=== PATIENT | male | born 1995 | race Caucasian/White ===

== ENCOUNTER 2023-11-19 14:39 | Emergency (ER) | payer SELFPAY ==
[2023-11-19 14:51] VITALS: BP 124/70; PULSE 127; RESP 16; TEMP 36.7; O2SAT 95; BMI 22.9
--- NOTE | 2023-11-19 14:54 | ECG_ITS ---
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 Measurements Intervals [place] Rate: 130 P: 77 CO: 162 QRS: 72 QRSD: 82 T: 91 QT: 333 QTc: 490 Interpretive Statements SINUS TACHYCARDIA NONSPECIFIC T-WAVE ABNORMALITY No previous ECG available for comparison Electronically Signed On 11-20-2023 16:25:55 DRAW MACHINE OPERATOR by Christopher Wright M.D. [id number]
[2023-11-19 15:19] VITALS: O2SAT 95
--- NOTE | 2023-11-19 15:19 | XRR_ITS ---
PROCEDURE INFORMATION: Exam: XR Chest Exam date and time: 11/19/2023 3:27 PM Age: 27 years old Clinical indication: Patient HX: Cough; Fever; Body aches TECHNIQUE: Imaging protocol: Radiologic exam of the chest. Views: 1 view. COMPARISON: No relevant prior studies available. FINDINGS: Lungs: Unremarkable. No consolidation. Pleural spaces: Unremarkable. No pleural effusion. No pneumothorax. Heart/Mediastinum: Unremarkable. No cardiomegaly. Bones/joints: Unremarkable. XR/XR chest 1V portable [id number] IMPRESSION: No acute findings.
--- NOTE | 2023-11-19 15:32 | W.ED.URI ---
HPI - URI/Sore Throat General: Chief Complaint: COVID symptoms Stated Complaint: Chest pain , Fever Time Seen by Provider: 11/19/23 15:05 Source: patient Mode of arrival: ambulatory Limitations: no limitations History of Present Illness: Patient is a 27-year-old male who presents to ED today with a complaint of cough and congestion. He was reportedly coughing up yellow phlegm and feels like he cannot take a deep breath. He reports being around another individual with influenza. He does state he has been running fevers. No vomiting or diarrhea. Denies chest pain. MD elicited complaint: cough and nasal congestion Onset (ago): day(s) Consistency: constant Severity: moderate Description of mucous: clear Able to tolerate fluids by mouth: Yes Exacerbating factors: nothing Relieving factors: nothing Context: sick contacts (exposed to individual with influenza) Associated symptoms: Reports nasal congestion; Deny abdominal pain, chills, chest pain, diarrhea, fever(s), headache(s), nausea, sinus pain or vomiting Treatments prior to arrival: none Review of Systems Const: Reports: body aches; Denies: fever(s), chills, fatigue or malaise Eyes: Denies: change in vision, blurry vision, eye discomfort or eye discharge ENMT: Reports: nasal congestion; Denies: throat pain, odynophagia, nasal discharge or sinus pain Card: Denies: chest pain, palpitations, irregular heart rhythm, edema, swelling of feet/ankles, lightheadedness, syncope or pre-syncope Resp: Reports: dyspnea, productive cough and chest congestion; Denies: wheezing, stridor, pain on inspiration or hemoptysis GI: Denies: abdominal pain, nausea, vomiting or diarrhea : Denies: flank pain, difficulty urinating, dysuria, urinary frequency, urinary urgency or urinary hesitancy Musc: Denies: neck pain, back pain, extremity pain or joint pain Skin/Breast: Denies: rash Neuro: Denies: headache(s), numbness in extremities, weakness in extremities, sensory changes or dizziness PFS ED PFSH: Medical History Anxiety ADHD (attention deficit hyperactivity disorder), combined type Insomnia Psychiatric care OCD (obsessive compulsive disorder) Physical Exam Const: COMMON NORMALS: no acute distress, average body habitus, patient oriented x3, no limitations, healthy appearing, alert and well nourished GENERAL APPEARANCE: cooperative HENMT: COMMON NORMALS: Normal external nose present FACE & SINUS: normal facial exam and sinuses nontender NOSE: Normal external nose present THROAT: posterior oropharynx normal Eye: GENERAL EYE: appearance normal, both eyes and all related structures Neck/C-Spine: COMMON NORMALS: no lymphadenopathy Resp: COMMON NORMALS: normal respiratory effort and clear to auscultation bilaterally AUSCULTATION: clear to auscultation bilaterally Cardio: COMMON NORMALS: regular rhythm RATE: tachycardic RHYTHM: regular rhythm GI: COMMON NORMALS: Normal to inspection, nondistended, normoactive bowel sounds present, Soft to palpation and non-tender PALPATION: Yes Soft to palpation Neuro: COMMON NORMALS: patient oriented x3 SENSORIUM/ORIENTATION: Yes alert Course Vital Signs: Vital signs: Vital Signs Temperature 98.1 F 11/19/23 14:51 Pulse Rate 101 H 11/19/23 16:16 Respiratory Rate 16 11/19/23 14:51 Blood Pressure 142/87 11/19/23 16:16 Pulse Oximetry 95 11/19/23 16:16 Oxygen Delivery Me thod Room Air 11/19/23 15:19 MDM - URI/Sore Throat Medical Decision Making Patient appears in no acute distress. CXR is normal. Respiratory panel collected and pending. He will be called later today with any positive results. Medical Records I reviewed the patient's medical records. Lab Data Radiology Impressions Chest X-Ray 11/19/23 15:19 IMPRESSION: No acute findings. All radiology interpretation(s) finalized by discharge Discharge Plan Discharge Patient Disposition: Home Clinical Impression: Viral upper respiratory tract infection with cough Condition: Stable Prescriptions: No Action clomipramine 25 mg capsule 25 mg PO DAILY Qty: 30 0RF dextroamphetamine-amphetamine [Adderall] 20 mg tablet 10 mg PO BID 30 Days Qty: 30 0RF Discharge Orders: Discharge ED (Routine); Ordered 11/19/23 Ordered By: Cristina Valadez Referrals: Mary Bishop [Primary Care Provider] - Patient Instructions: Upper Respiratory Infection (DC) Activity Restrictions/Additional Instructions: Your chest x-ray here was negative for pneumonia. As we discussed we will collect a respiratory panel on you. You will be contacted later today for any positive results. Coding Level of Care Code ED Exhibit Display Representative for Keyla Mensah
[2023-11-19 16:16] VITALS: BP 142/87; PULSE 101; O2SAT 95
[2023-11-19 17:46] LABS: Adenovirus Not Detected (NOT DETECT); Chlamydia Pneumoniae Not Detected (NOT DETECT); Coronavirus 229E,HKU1,NL63,OC4 Not Detected (NOT DETECT); Human Metapneumovirus Not Detected (NOT DETECT); Human Rhinovirus/Enterovirus Not Detected (NOT DETECT); Influenza A Detected (NOT DETECT); Influenza A H1 Not Detected (NOT DETECT); Influenza A H1-2009 Detected (NOT DETECT); Influenza A H3 Not Detected (NOT DETECT); Influenza B Not Detected (NOT DETECT); Mycoplasma Pneumoniae Not Detected (NOT DETECT); Parainfluenza Virus Type 1 Not Detected (NOT DETECT); Parainfluenza Virus Type 2 Not Detected (NOT DETECT); Parainfluenza Virus Type 3 Not Detected (NOT DETECT); Parainfluenza Virus Type 4 Not Detected (NOT DETECT); Respiratory Syncytial Virus A Not Detected (NOT DETECT); Respiratory Syncytial Virus B Not Detected (NOT DETECT); SARS-COV-2 Not Detected (NOT DETECT)
== END 2023-11-19 16:10 | disposition home or self-care (01) ==
PROVIDERS: Emergency Provider Physician Assistant; PCP Nurse Practitioner Family
DX: J06.9 Acute upper respiratory infection, unspecified (principal); R05.9 Cough, unspecified
CPT/HCPCS: 71045; 87486; 87581; 87633; 93005; 99284

== ENCOUNTER 2024-04-18 20:04 | Emergency (ER) | payer SELFPAY ==
[2024-04-18 20:15] VITALS: BP 123/77; PULSE 79; RESP 14; TEMP 36.5; O2SAT 97; BMI 23.6
[2024-04-18 20:47] LABS: Basophils % 0.4 %; Eosinophils # 0.2 10^3/uL (0.0-0.8); Eosinophils % 4.2 %; Hematocrit 43.1 % (37-53); Lymphocytes # 1.6 10^3/uL (0.8-4.8); Lymphocytes % 32.7 %; Mean Corpuscular HGB Conc 32.3 g/dL (30-55); Mean Corpuscular Hemoglobin 26.7 pg (27-33); Mean Corpuscular Volume 82.9 fl (82-101); Monocytes # 0.3 10^3/uL (0.2-0.9); Neutrophils # 2.89 10^3/uL (1.8-7.7); Neutrophils % 57.7 %; Nucleated Red Blood Cells % 0 %; Platelet Count 246 10^3/cmm (157-399); Red Cell Distribution Width 12.4 % (12.1-15.1); White Blood Count 5.01 10^3/uL (3.29-11.43)
--- NOTE | 2024-04-18 20:47 | XRR_ITS ---
PROCEDURE INFORMATION: Exam: XR Abdomen Exam date and time: 04/18/2024 8:52 PM Age: 28 years old Clinical indication: Abdominal pain; Flank; Right; Additional info: Abdominal pain x 2mo, increasingly worse when bent over and gets relief lying down TECHNIQUE: Imaging protocol: Radiologic exam of the abdomen. Views: 2 Views. Upright and supine views. COMPARISON: No relevant prior studies available. FINDINGS: Lungs: No consolidation. Pleural spaces: There is no pleural effusion or pneumothorax. Heart/Mediastinum: The included chest shows a normal heart size. Gastrointestinal tract: There are no abnormally dilated loops of small bowel. There is moderate fecal burden throughout the colon suggestive of constipation. Intraperitoneal space: No free air. Organs: The right kidney shadow is obscured by the overlying hepatic flexure. Bones/joints: Unremarkable for age. XR/XR acute abdomen series 20507 IMPRESSION: 1. Moderate fecal burden throughout the colon suggestive of constipation. 2. The right kidney shadow is obscured by the overlying hepatic flexure.
--- NOTE | 2024-04-18 20:48 | ED_ITS ---
HPI - Abdominal Pain 2 General: Chief Complaint: Abdominal Pain Stated Complaint: Abd Pain Time Seen by Provider: 04/18/24 20:23 History of Present Illness: 28-year-old man who presents emergency r oom with abdominal pain. This been going on for some time now. Has been seen in the emergency room at 6 weeks ago and was told that he was constipated. He stated, gotten better but then has gotten worse again. He feels like his abdomen is bloated. No nausea or vomiting. No diarrhea. No fevers. No dysuria. Review of Systems 2 Narrative: Constitutional symptoms: Negative except as documented in HPI. Skin symptoms: Negative except as documented in HPI. Eye symptoms: Negative except as documented in HPI. ENMT symptoms: Negative except as documented in HPI. Respiratory symptoms: Negative except as documented in HPI. Cardiovascular symptoms: Negative except as documented in HPI. Gastrointestinal symptoms: Negative except as documented in HPI. Genitourinary symptoms: Negative except as documented in HPI. Musculoskeletal symptoms: Negative except as documented in HPI. Neurologic symptoms: Negative except as documented in HPI. Psychiatric symptoms: Negative except as documented in HPI. Endocrine symptoms: Negative except as documented in HPI. Physical Exam 2 Narrative: EXAM NARRATIVE: General: Alert, no acute distress. Skin: Warm, dry. Head: Normocephalic, atraumatic. Neck: Supple, trachea midline. Eye: Extraocular movements are intact. Ears, nose, mouth and throat: mucosa moist. Cardiovascular: Regular, Normal peripheral perfusion. Respiratory: Lungs are clear to auscultation, respirations are non-labored, breath sounds are equal, Symmetrical chest wall expansion. Gastrointestinal: Soft, mild diffuse abdominal pain, no obvious distention., Normal bowel sounds. Musculoskeletal: Normal ROM, no deformity. Neurological: Alert and oriented, No focal neurological deficit observed. Psychiatric: Cooperative, appropriate mood & affect. Course 2 Vital Signs: Vital signs: Vital Signs Temperature 97.7 F 04/18/24 20:15 Pulse Rate 70 04/18/24 21:04 Respiratory Rate 14 04/18/24 20:15 Blood Pressure 130/73 04/18/24 21:04 Pulse Oximetry 96 04/18/24 21:04 Oxygen Delivery Me thod Room Air 04/18/24 21:04 MDM - Abdominal Pain Medical Decision Making Medical decision making: Differential diagnosis including but not limited to and based on the above HPI, review of systems and physical exam: In this patient with chronic abdominal pain seems most likely he still is having some constipation. Basic lab work is ordered and an x-ray to start. Orders placed to evaluate differential diagnosis based on the above differential, HPI and physical exam Acute abdominal series: chest x-ray: No acute process. No obvious infiltrates. No pneumothorax. No cardiomegaly. This was reviewed and interpreted by myself the emergency room physician Abdomen x-ray: Nonspecific bowel gas pattern. No evidence of free air or obstruction. This was reviewed and interpreted by myself the emergency room physician. Large amount of stool throughout the colon indicative of constipation. Lab Review: Laboratory results were reviewed and interpreted by myself the emergency room physician. Lab work is unremarkable. No leukocytosis. No renal failure. Electrolytes are normal. I reviewed the patient's medical record. Reexamination: Patient remained stable. No altered mental status. He had no vomiting. No focal abdominal pain. Assessment and plan: Constipation. ?Mag citrate to start in the emergency room. Will put him on a plan of MiraLAX daily to twice daily for the next few months - Discharged home - Discussed plan with patient. Answered any questions. - Evaluation and treatment of this problem were appropriate in the emergency setting. Lab Data 04/18/24 20:31 04/18/24 20:31 Labs/Radiology: Laboratory Results WBC 5.01 10^3/uL (3.29-11.43) 04/18/24 20: RBC 5.20 10^6/uL (3.85-5.65) 04/18/24 20:31 Hgb 13.90 g/dL (11.27-16.99) 04/18/24 20: Hct 43.1 % (37-53) 04/18/24 20:31 MCV 82.9 fl (82-101) 04/18/24 20: MCH 26.7 pg (27-33) L 04/18/24 20: MCHC 32.3 g/dL (30-55) 04/18/24 20: RDW 12.4 % (12.1-15.1) 04/18/24 20: Plt Count 246 10^3/cmm (157-399) 04/18/24 20: MPV 10.0 fL (7.4-10.4) 04/18/24 20:31 Neut % (Auto) 57.7 % 04/18/24 20:31 Lymph % (Auto) 32.7 % 04/18/24 20:31 Wilkinson % (Auto) 5.0 % 04/18/24 20:31 Eos % (Auto) 4.2 % 04/18/24 20:31 Baso % (Auto) 0.4 % 04/18/24 20:31 Neut # (Auto) 2.89 10^3/uL (1.8-7.7) 04/18/24 20:31 Lymph # (Auto) 1.6 10^3/uL (0.8-4.8) 04/18/24 20: Wilkinson # (Auto) 0.3 10^3/uL (0.2-0.9) 04/18/24 20: Eos # (Auto) 0.2 10^3/uL (0.0-0.8) 04/18/24 20: Baso # (Auto) 0.0 10^3/uL (0.0-0.1) 04/18/24 20:31 Nucleated RBC % (auto) 0 % 04/18/24 20: Nucleated RBCs # 0.0 /100WBC 04/18/24 20:31 Sodium 140 mmol/L (136-145) 04/18/24 20:31 Potassium 3.5 mmol/L (3.5-5.1) 04/18/24 20: Chloride 101 mmol/L (98-107) 04/18/24 20: Carbon Dioxide 28 mmol/L (22-29) 04/18/24 20:31 Anion Gap 14.5 (5-19) 04/18/24 20:31 BUN 7 mg/dL (6-20) 04/18/24 20:31 Creatinine 0.7 mg/dL (0.7-1.2) 04/18/24 20:31 GFR Calculation 132.4 mL/min (90-130) H 04/18/24 20:31 Glucose 143 mg/dL (65-115) H 04/18/24 20:31 Calculated Osmolality 290 mOsm/kg (285-295) 04/18/24 20: Calcium 8.6 mg/dL (8.5-10.5) 04/18/24 20:31 Total Bilirubin 0.8 mg/dL (0.15-1.2) 04/18/24 20:31 AST 21 U/L (0-40) 04/18/24 20:31 ALT 28 U/L (0-41) 04/18/24 20:31 Alkaline Phosphatase 94 U/L (40-130) 04/18/24 20:31 Total Protein 7.4 g/dL (6.6-8.7) 04/18/24 20:31 Albumin 4.6 g/dL (3.5-5.2) 04/18/24 20:31 Globulin 2.8 g/dL (1.3-4.6) 04/18/24 20:31 Lipase 33 U/L (13-60) 04/18/24 20:31 All radiology interpretation(s) finalized by discharge Discharge Plan Discharge Patient Disposition: Home Clinical Impression: Constipation Qualifiers: Constipation type: chronic idiopathic constipation Qualified Code(s): K59.04 - Chronic idiopathic constipation Condition: Stable Prescriptions: New Miralax 17 gram/dose powder 17 g PO DAILY Qty: 510 0RF Rx Instructions: Take 1-2 scoops daily for the next 3 months to keep stools soft glycerin (adult) Suppository 1 supp MS DAILY PRN (Reason: constipation) Qty: 12 0RF Discharge Orders: Discharge ED (Routine); Ordered 04/18/24 Ordered By: Danielle Wilkinson Referrals: Mary Bishop [Primary Care Provider] - Discharge Diet: Usual diet Discharge Activity: Resume usual activity Patient Instructions: Constipation (ED) Activity Restrictions/Additional Instructions: Thank you for choosing [facility] for your healthcare needs today. Please realize this is an emergency room and that we are providing you with a medical screening exam and this may not be complete and all inclusive of all the testing and or work up that you may need to determine your ailment or severity of your illness. You have been screened and evaluated and felt safe for discharge. Health conditions do change or evolve sometimes and as such it is important that you follow up with your Primary Doctor to be re checked, 3-5 days is a general good time frame for follow up. You are always welcome to return to the ED for re assessment if your symptoms are worsening or you have new concerns Coding Level of Care Code ED Financial Quantitative Analyst for Keyla Mensah
[2024-04-18 21:04] VITALS: BP 130/73; PULSE 70; O2SAT 96
[2024-04-18 21:04] LABS: Alanine Aminotransferase 28 U/L (0-41); Albumin Level 4.6 g/dL (3.5-5.2); Alkaline Phosphatase 94 U/L (40-130); Anion Gap 14.5 (5-19); Aspartate Amino Transferase 21 U/L (0-40); Blood Urea Nitrogen 7 mg/dL (6-20); Calcium 8.6 mg/dL (8.5-10.5); Carbon Dioxide 28 mmol/L (22-29); Chloride 101 mmol/L (98-107); Creatinine Clr Calc Pharmacy 160.9344; Globulin 2.8 g/dL (1.3-4.6); Glomerular Filtration Rate 132.4 mL/min (90-130); Glucose 143 mg/dL (65-115); Lipase 33 U/L (13-60); Osmolality Calculated 290 mOsm/kg (285-295); Potassium 3.5 mmol/L (3.5-5.1); Sodium 140 mmol/L (136-145); Total Bilirubin 0.8 mg/dL (0.15-1.2); Total Protein 7.4 g/dL (6.6-8.7)
[2024-04-18] MEDS: magnesium citrate Btl 296 mL PO (21:20)
[2024-04-18 21:30] VITALS: BP 130/73; PULSE 63; O2SAT 95
== END 2024-04-18 21:27 | disposition home or self-care (01) ==
PROVIDERS: Emergency Medicine; Emergency Provider Emergency Medicine; PCP Nurse Practitioner Family
DX: K59.04 Chronic idiopathic constipation (principal)
CPT/HCPCS: 36415; 74022; 80053; 83690; 85025; 99284

== ENCOUNTER 2024-10-01 16:53 | Emergency (ER) | payer SELFPAY ==
[2024-10-01 17:07] VITALS: BP 148/72; PULSE 95; RESP 18; TEMP 36.7; O2SAT 100
--- NOTE | 2024-10-01 17:31 | ED_ITS ---
HPI - Dental/Oral General: Chief complaint: Dental/Oral Stated complaint: abcess tooth/ pain and dizzy/confusion Time Seen by Provider: 10/01/24 17:13 Source: patient Mode of arrival: ambulatory Limitations: no limitations History of Present Illness: Patient is a 28-year-old male who presents to the emergency department for left lower dental pain and swelling evolving over the past few days. Reports a history of dental abscess, states this feels similar but has not been severe in the past. He does have an appointment with dentist tomorrow for wisdom tooth extraction consultation. He says the pain is radiating towards his left ear and into his left neck, and he has having some general facial pain. He is not reporting any fevers, trouble breathing, vomiting, or other systemic signs of illness. He is able to tolerate food and liquids. He has not taken anything for his symptoms other than trying some old amoxicillin today. Vital stable at this time. MD Complaint: tooth pain Onset (ago): day(s) Duration: constant Severity: severe Severity scale (1-10): 10 Relieving factors: nothing Context: history of dental caries and poor dental care Associated symptoms: Reports ear or mastoid pain; Denies fever(s) Treatment prior to arrival: other (Old amoxicillin prescription) Related Data Previous Rx's Medication Instructions Recorded clomipramine 25 mg capsule 25 mg PO DAILY #30 caps 09/06/23 dextroamphetamine-amphetamine 20 10 mg (1/2 x 20 mg) PO BID 30 days 09/06/23 mg tablet (Adderall) #30 tabs glycerin (adult) 1 supp AK DAILY PRN constipation 04/18/24 #12 ea polyethylene glycol 3350 17 17 g PO DAILY #510 grams 04/18/24 gram/dose oral powder (Miralax) amoxicillin 875 mg-potassium 1 tab PO BID 10 days #20 tabs 10/01/24 clavulanate 125 mg tablet lidocaine HCl 2 % mucosal solution 10 ml mucous membrane DAILY PRN 10/01/24 (Lidocaine Viscous) pain #100 mL prednisone 20 mg tablet 60 mg (3 x 20 mg) PO ONCE 5 days 10/01/24 #15 tabs Allergies Allergy/AdvReac Type Severity Reaction Status Date / Time No Known Allergies Allergy Verified 04/25/24 16:24 Review of Systems General: Reports: 10 or more systems reviewed and unremarkable except in HPI and below Const: Denies: fever(s), chills or fatigue Eyes: Denies: change in vision ENMT: Reports: dental pain, ear or mastoid pain and sinus pain; Denies: throat pain or nasal discharge Card: Denies: chest pain, palpitations, swelling of feet/ankles or ligh theadedness Resp: Denies: dyspnea, productive cough or wheezing GI: Denies: abdominal pain, nausea, vomiting, diarrhea or constipation : Denies: flank pain, difficulty urinating, dysuria or urinary frequency Musc: Reports: neck pain; Denies: back pain or joint pain Skin/Breast: Denies: rash Neuro: Denies: headache(s), numbness in extremities or weakness in extremities PFSH ED PFSH: Medical History Anxiety ADHD (attention deficit hyperactivity disorder), combined type Insomnia OCD (obsessive compulsive disorder) Physical Exam Const: COMMON NORMALS: no acute distress, patient oriented x3 and no limitations GENERAL APPEARANCE: cooperative, comfortable and well developed ORIENTATION/CONSCIOUSNESS: Yes awake, Yes oriented to person, Yes oriented to place and Yes oriented to time HENMT: COMMON NORMALS: normocephalic, atraumatic, hearing grossly normal bilaterally and Normal external nose present HEAD & SCALP: normocephalic and atraumatic FACE & SINUS: normal facial exam and face symmetric NOSE: Normal external nose present MOUTH: Normal oral and palatal mucosa present, lip normal and tongue normal TEETH & GINGIVA: Yes abnormal tooth and associated gingiva lower left tender, with associated gingival edema and enamel fractured, Yes caries, Yes multiple restorations and Yes poor dentition OTHER: There is some minor facial swelling to the left lower mandibular region, pretty significant reproducible tenderness to palpation of this area extending up towards patient's left ear. Posterior oropharyngeal exam is normal as his uvula is midline, no trismus, foul breath odor, and no trouble handling secretions. Eye: COMMON NORMALS: Equal, round and reactive pupils present, EOMs intact bilaterally and conjunctivae normal CONJUNCTIVA: Yes conjunctivae normal PUPIL: Yes Equal, round and reactive pupils present Neck/C-Spine: COMMON NORMALS: full ROM, supple and no JVD Resp: COMMON NORMALS: normal respiratory effort, No retractions, No use of accessory muscles and clear to auscultation bilaterally AUSCULTATION: clear to auscultation bilaterally Cardio: COMMON NORMALS: no JVD, regular rate, regular rhythm, No clicks present (Cardio), No murmurs present (Cardio) and No rub (Cardio) RATE: regular rate RHYTHM: regular rhythm Extremity: COMMON NORMALS: normal to inspection, full ROM and capillary refill normal Neuro: COMMON NORMALS: patient oriented x3, CN's II-XII intact bilaterally, moves all extremities, no focal motor deficits and no sensory deficits noted SENSORIUM/ORIENTATION: Yes oriented to person, Yes oriented to place and Yes oriented to time Psych: COMMON NORMALS: mental status grossly normal and Normal thought process present THOUGHT PROCESS: Normal thought process present Skin: COMMON NORMALS: no rashes or lesions noted GENERAL SKIN EXAM: no rashes or lesions noted Course Vital Signs: Vital signs: Vital Signs Temperature 98.1 F 10/01/24 17:07 Pulse Rate 95 10/01/24 17:07 Respiratory Rate 18 10/01/24 17:07 Blood Pressure 148/72 10/01/24 17:07 Pulse Oximetry 100 10/01/24 17:07 Oxygen Delivery Me thod Room Air 10/01/24 17:07 MDM - Dental/Oral Medical Decision Making Patient has dental appointment tomorrow as he is set to have his wisdom teeth extracted, though due to increasing pain and swelling to the left dental region was concerned of potential abscess. There was evidence of fracture to left molar on exam, this could be causing quite a bit of the patient's pain along with the potential dental abscess with the associated gingival edema and facial swelling. His vitals are normal including no fever. Posterior oropharyngeal exam is also normal. I believe his pain and swelling consistent with setting of dental abscess complicated with pain from a fractured tooth. Plan to treat with antibiotics and steroids, and will be given steroid shot here in the emergency department. Also will have him apply viscous lidocaine to that fractured tooth and ultimately will still need follow-up with dentist tomorrow. Return precautions were given. No radiology studies performed this visit Discharge Plan Discharge Patient Disposition: Home Clinical Impression: Dental abscess, Fracture of tooth Condition: Stable Prescriptions: New prednisone 20 mg tablet 60 mg PO ONCE 5 Days Qty: 15 0RF amoxicillin-pot clavulanate 875-125 mg tablet 1 tab PO BID 10 Days Qty: 20 0RF lidocaine HCl [Lidocaine Viscous] 2 % solution 10 ml mucous membrane DAILY PRN (Reason: pain) Qty: 100 0RF No Action clomipramine 25 mg capsule 25 mg PO DAILY Qty: 30 0RF dextroamphetamine-amphetamine [Adderall] 20 mg tablet 10 mg PO BID 30 Days Qty: 30 0RF Miralax 17 gram/dose powder 17 g PO DAILY Qty: 510 0RF Rx Instructions: Take 1-2 scoops daily for the next 3 months to keep stools soft glycerin (adult) Suppository 1 supp AK DAILY PRN (Reason: constipation) Qty: 12 0RF Discharge Orders: Discharge ED (Routine); Ordered 10/01/24 Ordered By: German Olivares Referrals: Mary Bishop [Primary Care Provider] - Patient Instructions: Dental Abscess (ED) Activity Restrictions/Additional Instructions: Take antibiotics and steroids as prescribed. Topical lidocaine for tooth fracture. Continue follow-up with dentist tomorrow. If you develop any trouble breathing, high fevers, nausea or vomiting, or other concerning signs please return to the emergency department. Coding Level of Care Code ED Assistant Manager Of Operations for Keyla Mensah
[2024-10-01] MEDS: dexamethasone 10 mg/mL INJ IM (17:32)
[2024-10-01] MEDS: amoxicillin-clav 875-125 mg Tablet 1 TAB PO (17:34)
[2024-10-01] MEDS: lidocaine 2% viscous 15 mL UDC TOPICAL (17:35)
[2024-10-01 17:48] VITALS: BP 123/74; PULSE 71; O2SAT 97
== END 2024-10-01 17:49 | disposition home or self-care (01) ==
PROVIDERS: Emergency Provider Physician Assistant; PCP Nurse Practitioner Family
DX: K04.7 Periapical abscess without sinus (principal); S02.5XXA Fracture of tooth (traumatic), initial encounter for closed fracture; X58.XXXA Exposure to other specified factors, initial encounter
CPT/HCPCS: 96372; 99284; J1100